=== PATIENT | male | born 1970 | race Two or more races ===

== ENCOUNTER 2017-05-15 15:14 | Emergency (ER) | payer MEDICAID ==
[~2017-05-15] VITALS: Ht 170.2 cm; Wt 84.0 kg
[~2017-05-15 15:14] MED LIST: FOLI0.4T2 PO; OFLO5DRO3 OT; ONDA4SOL2 IV; PANT-47 PO; PROC-8 IV; THI100T PO
[2017-05-15 15:59] LABS: BASOPHILS % (AUTO) 0.1 % (0-1); EOSINOPHILS % (AUTO) 1.1 % (0-6); HEMATOCRIT 33.3 % (42.0-52.0); HEMOGLOBIN 11.3 g/dl (14.0-17.9); LYMPHOCYTES # (AUTO) 0.6 X10'3 (1.1-4.8); LYMPHOCYTES % (AUTO) 16.3 % (21-51); MEAN CORPUSCULAR HEMOGLOBIN 31.8 PG (27.0-31.0); MEAN CORPUSCULAR HGB CONC 33.9 % (33.0-36.5); MEAN CORPUSCULAR VOLUME 93.9 FL (78-98); MEAN PLATELET VOLUME 9.7 FL (7.4-10.4); MONOCYTES # (AUTO) 0.3 X10'3 (0-0.9); MONOCYTES % (AUTO) 9.9 % (2-12); NEUTROPHILS # (AUTO) 2.5 X10'3 (1.8-7.7); NEUTROPHILS % (AUTO) 72.6 % (42-75); PLATELET COUNT 76 X10'3 (140-440); RED BLOOD COUNT 3.55 X10'6 (4.70-6.10); RED CELL DISTRIBUTION WIDTH 17.9 % (11.5-14.5); WHITE BLOOD COUNT 3.4 X10'3 (4.5-11.0)
[2017-05-15] MEDS ORDERED: ondansetron/PF 4mg/2ml inj IV ONE (16:15)
[2017-05-15 16:53] LABS: INR 1.2 INR; PROTHROMBIN TIME 12.7 SECONDS (9.0-12.0)
[2017-05-15 16:58] LABS: ALANINE AMINOTRANSFERASE 28 U/L (12-78); ALBUMIN 3.6 G/DL (3.4-5.0); ALBUMIN/GLOBULIN RATIO 0.8 (1.1-1.5); ALKALINE PHOSPHATASE 133 IU/L (46-116); AMYLASE 136 U/L (25-115); ANION GAP 7 (8-16); ASPARTATE AMINO TRANSFERASE 44 U/L (10-37); BLOOD UREA NITROGEN 9 MG/DL (7-18); BUN/CREATININE RATIO 13.4 (5.4-32.0); CALCIUM 8.9 MG/DL (8.5-10.1); CHLORIDE 104 MMOL/L (99-107); CREATININE 0.67 MG/DL (0.60-1.10); GLUCOSE 110 MG/DL (70-104); LIPASE 91 U/L (73-393); POTASSIUM 4.1 MMOL/L (3.5-5.1); SODIUM 139 MMOL/L (135-145); TOTAL CARBON DIOXIDE 27.7 MMOL/L (24-32); TOTAL PROTEIN 8.3 G/DL (6.4-8.2); eGFR > 90 ML/MIN
[2017-05-15 17:12] LABS: URINE AMPHETAMINE SCREEN NEGATIVE (Neg); URINE BARBITUATE SCREEN NEGATIVE (Neg); URINE BENZODIAZEPINES SCREEN NEGATIVE (Neg); URINE CANNABINOID SCREEN NEGATIVE (Neg); URINE COCAINE SCREEN NEGATIVE (Neg); URINE METHADONE SCREEN NEGATIVE (Neg); URINE OPIATE SCREEN POSITIVE (Neg); URINE PHENCYCLIDINE SCREEN NEGATIVE (Neg)
[2017-05-15 17:20] LABS: CLARITY,URINE CLEAR (Clear); COLOR,URINE YELLOW (Yellow); GLUCOSE, URINE NEGATIVE (Neg); KETONES,URINE NEGATIVE (Neg); LEUKOCYTE ESTERASE ,URINE NEGATIVE (Neg); NITRITES, URINE NEGATIVE (Neg); OCCULT BLOOD,URINE NEGATIVE (Neg); PH,URINE 7.5 (4.8-8.0); PROTEIN,URINE NEGATIVE (Neg)
[2017-05-15 17:23] LABS: UA COLLECTION TYPE VOIDED
[2017-05-15 17:52] LABS: ETHANOL < 0.010 GM/DL (0.0-0.010)
[2017-05-15] MEDS ORDERED: HYDROmorphone inj. 0.5 MG/0.5 ML DISP.SYRIN IV ONE (18:20)
[2017-05-15] MEDS ORDERED: MORP15TA PO (18:55)
[2017-05-15 19:04] VITALS: BP 145/87
== END 2017-05-15 19:07 | disposition home or self-care (01) ==
LOC: ER 15:15
DX: R10.32 Left lower quadrant pain (principal); F10.20 Alcohol dependence, uncomplicated; E11.9 Type 2 diabetes mellitus without complications
CPT/HCPCS: 36415; 76700; 80053; 80305; 80320; 81003; 82150; 83690; 85025; 85610; 96374; 96375; 99285; J1170; J2270; J2405

== ENCOUNTER 2017-06-08 15:48 | Emergency (ER) | payer MEDICAID ==
[~2017-06-08] VITALS: Ht 170.2 cm; Wt 82.5 kg
[~2017-06-08 15:48] MED LIST changes: +MORP15TA PO
[2017-06-08 16:09] VITALS: BP 144/76
[2017-06-08] MEDS ORDERED: ketorolac trometh. 30mg/ml inj. IV ONE (18:20)
[2017-06-08] MEDS ORDERED: CIPR500T24 PO (18:59)
[2017-06-08] MEDS ORDERED: CIPR7.5D2 EACH EAR (18:59)
[2017-06-08] MEDS ORDERED: NAPR-56 PO (19:03)
== END 2017-06-08 19:13 | disposition home or self-care (01) ==
LOC: ER 15:49
DX: H66.91 Otitis media, unspecified, right ear (principal); H60.61 Unspecified chronic otitis externa, right ear; M54.5 Low back pain; G89.29 Other chronic pain; H91.90 Unspecified hearing loss, unspecified ear
CPT/HCPCS: 96374; 99284; J1885

== ENCOUNTER 2017-07-30 09:26 | Emergency (ER) | payer MEDICAID ==
[~2017-07-30] VITALS: Ht 177.8 cm; Wt 71.0 kg
[~2017-07-30 09:26] MED LIST changes: +CIPR7.5D2 EACH EAR; -MORP15TA PO; +NAPR-56 PO
[2017-07-30 09:30] VITALS: BP 126/82
[2017-07-30] MEDS ORDERED: AMOX-419 PO (10:28)
== END 2017-07-30 10:44 | disposition home or self-care (01) ==
LOC: ER 09:27
DX: H66.92 Otitis media, unspecified, left ear (principal); Z79.899 Other long term (current) drug therapy
CPT/HCPCS: 99283

== ENCOUNTER 2017-12-24 07:18 | Emergency (ER) | payer MEDICAID ==
[~2017-12-24] VITALS: Ht 170.2 cm; Wt 83.0 kg
[~2017-12-24 07:18] MED LIST changes: +CYCL-1 PO; +HYDR-569 PO
[2017-12-24 07:22] VITALS: BP 141/91
[2017-12-24] MEDS ORDERED: ketorolac trometh inj. 60 MG/2 ML VIAL IM ONE (08:20)
[2017-12-24] MEDS ORDERED: ondansetron 4mg rapidly disintigrating tab PO ONE (08:20)
[2017-12-24] MEDS ORDERED: HYDROcodone/acetaminophen 10/325mg tab PO ONE (08:20)
[2017-12-24] MEDS ORDERED: LEVO500T89 PO (09:04)
== END 2017-12-24 09:39 | disposition home or self-care (01) ==
LOC: ER 07:19
DX: H70.92 Unspecified mastoiditis, left ear (principal); Z79.899 Other long term (current) drug therapy
CPT/HCPCS: 70450; 96372; 99284; J1885